=== PATIENT | male | born 1980 | race African-American/Black ===

== ENCOUNTER 2018-01-04 10:06 | Emergency (ER) | payer MEDICAID, OTHER ==
[~2018-01-04] VITALS: Ht 182.9 cm; Wt 109.0 kg
[2018-01-04 10:21] VITALS: BP 134/86
== END 2018-01-04 13:22 | disposition home or self-care (01) ==
LOC: ER 10:42
DX: J40 Bronchitis, not specified as acute or chronic (principal); F17.210 Nicotine dependence, cigarettes, uncomplicated
CPT/HCPCS: 71045; 87804; 99285

== ENCOUNTER 2018-09-13 11:20 | Emergency (ER) | payer MEDICAID ==
[~2018-09-13] VITALS: Ht 180.3 cm; Wt 121.5 kg
[2018-09-13] MEDS ORDERED: PIPERACILLIN/TAZ 3.375G PREMIX 50 ML IV ONE (13:45)
[2018-09-13] MEDS ORDERED: VANCOMYCIN 1 G PREMIX 200 ML IV ONE (13:45)
[2018-09-13] MEDS ORDERED: SODIUM CHLORIDE 0.9% 1000ML BAG (SEPSIS BOLUS) IV ONE (13:45)
[2018-09-13 14:21] LABS: CHLORIDE 104 mEq/L (98-107)
[2018-09-13 14:23] LABS: BASOPHILS % 0.3 % (0.0-2.0); EOSINOPHILS % 1.1 % (0.0-5.0); HEMOGLOBIN. 16.3 g/dL (14.0-18.0); LYMPHOCYTES % 18.1 % (20.0-50.0); MEAN CORPUSCULAR HEMOGLOBIN 30.2 pg (28.0-32.0); MEAN CORPUSCULAR VOLUME 88.9 fL (80.0-94.0); MEAN PLATELET VOLUME 9.6 fl (7.4-10.4); MONOCYTES % 6.2 % (2.0-8.0); NEUTROPHILS % 74.3 % (40.0-76.0); PLATELET 171 x1000/uL (130-400); RED CELL DISTRIBUTION WIDTH 13.3 % (11.6-14.6)
[2018-09-13 14:32] LABS: PROTHROMBIN TIME 10.2 sec (9.1-11.1)
[2018-09-13] MEDS ORDERED: NEOMYCIN-POLYMYXIN B-HYDROCORTISONE 1% OTIC SOLN 10ML RIGHT EAR ONE (14:45)
[2018-09-13] MEDS ORDERED: AMOXICILLIN/POTASSIUM CLAVULANATE 875/125MG TAB PO ONE (14:45)
[2018-09-13 15:53] VITALS: BP 115/99
[2018-09-13 16:08] LABS: CLARITY URINE CLEAR (CLEAR); COLOR URINE YELLOW (YELLOW); PH URINE 5.5 (4.5-8.0)
[2018-09-13 16:09] LABS: KETONES URINE NEGATIVE (NEGATIVE); NITRITE URINE NEGATIVE (NEGATIVE); OCCULT BLOOD URINE NEGATIVE (NEGATIVE); PROTEIN URINE NEGATIVE (NEGATIVE)
[2018-09-13 16:10] LABS: LEUKOCYTE ESTERASE URINE NEGATIVE (NEGATIVE); UROBILINOGEN URINE 0.2 E.U./dL (0.2-1.0)
== END 2018-09-13 15:54 | disposition home or self-care (01) ==
LOC: ER 12:51
DX: H60.91 Unspecified otitis externa, right ear (principal); F17.200 Nicotine dependence, unspecified, uncomplicated; F12.10 Cannabis abuse, uncomplicated
CPT/HCPCS: 36415; 80053; 81003; 83605; 84145; 84484; 85025; 85610; 87040; 87086; 93005; 99285; J7030

== ENCOUNTER 2021-05-12 18:14 | Emergency (ER) | payer MEDICAID ==
[~2021-05-12] VITALS: Ht 180.3 cm; Wt 90.0 kg
[2021-05-12] MEDS ORDERED: PERMETHRIN 5% CREAM 60GM TOP ONE (19:45)
[2021-05-12] MEDS ORDERED: ERYTHROMYCIN BASE 0.5% OPHTH OINT 3.5GM LEFTEYE ONE (19:45)
[2021-05-12] MEDS ORDERED: TOBR5DRO47 EACHEYE (21:23)
[2021-05-12] MEDS ORDERED: PERM60CR4 TP (21:23)
[2021-05-12] MEDS ORDERED: ERYTHROMYCIN BASE 0.5% OPHTH OINT UD LEFTEYE ONE (21:45)
[2021-05-12 21:49] VITALS: BP 128/94
== END 2021-05-12 21:51 | disposition home or self-care (01) ==
LOC: ER 18:33
DX: B86 Scabies (principal); H10.89 Other conjunctivitis; I10 Essential (primary) hypertension; E66.9 Obesity, unspecified; Z68.27 Body mass index [BMI] 27.0-27.9, adult; F12.90 Cannabis use, unspecified, uncomplicated
CPT/HCPCS: 99282; 99283

== ENCOUNTER 2021-10-04 02:29 | Emergency (ER) | payer MEDICAID, OTHER ==
[~2021-10-04 02:29] MED LIST: PERM60CR4 TP; TOBR5DRO47 EACHEYE
== END 2021-10-04 03:32 | disposition left against medical advice (07) ==
LOC: ER 02:29
DX: Z53.21 Procedure and treatment not carried out due to patient leaving prior to being seen by health care provider (principal)

== ENCOUNTER 2021-10-08 04:54 | Emergency (ER) | payer OTHER ==
[~2021-10-08] VITALS: Ht 180.3 cm; Wt 118.0 kg
[2021-10-08 06:47] LABS: BASOPHILS % 0.4 % (0.0-2.0); EOSINOPHILS % 2.4 % (0.0-5.0); HEMATOCRIT. 45.6 % (42.0-52.0); HEMOGLOBIN. 15.2 g/dL (14.0-18.0); LYMPHOCYTES % 31.3 % (20.0-50.0); MEAN CORPUSCULAR HEMOGLOBIN 29.5 pg (28.0-32.0); MEAN CORPUSCULAR VOLUME 88.4 fL (80.0-94.0); MEAN PLATELET VOLUME 8.6 fl (7.4-10.4); MONOCYTES % 6.6 % (2.0-8.0); NEUTROPHILS % 59.3 % (40.0-76.0); PLATELET 210 x1000/uL (130-400); RED BLOOD CELL COUNT 5.16 mill/uL (4.7-6.1); RED CELL DISTRIBUTION WIDTH 13.3 % (11.6-14.6)
[2021-10-08 06:52] LABS: CHLORIDE 105 mEq/L (98-107)
[2021-10-08 06:56] LABS: ETHANOL BLOOD < 10 mg/dL
[2021-10-08 07:06] LABS: BG BASE EXCESS -0.3 mmol/L (-2.0-2.0); BG CARBOXYHEMOGLOBIN 2.9 % (0.5-1.5); BG DEOXYHEMOGLOBIN 6.1 % (0.0-5.0); BG FRACTION INSPIRED OXYGEN 21; BG HCO3 ACT 25.8 mmol/L (22.0-26.0); BG METHEMOGLOBIN 0.1 % (0.0-1.5); BG OXYGEN SATURATION 93.7 % (92.0-98.5); BG OXYHEMOGLOBIN 90.9 % (94.0-97.0); BG PCO2 47.3 mmHg (35.0-45.0); BG PH 7.354 (7.350-7.450); BG PO2 71.6 mmHg (75.0-100.0); BG SAMPLE SITE RIGHT RADIAL; BG TOTAL HEMOGLOBIN 15.9 g/dL (12.0-18.0); BG VENT MODE ROOM AIR
[2021-10-08 08:00] VITALS: BP 154/98
== END 2021-10-08 08:34 | disposition home or self-care (01) ==
LOC: ER 04:54
DX: R53.1 Weakness (principal); M79.642 Pain in left hand; M79.641 Pain in right hand; R40.0 Somnolence
CPT/HCPCS: 36415; 36600; 71045; 80053; 80320; 82140; 82375; 82805; 85025; 99285; G0480

== ENCOUNTER 2022-12-04 20:06 | Emergency (ER) | payer MEDICAID, OTHER | END 2022-12-04 21:05 | disposition left against medical advice (07) | LOC: ER 20:06 | DX: Z53.21 Procedure and treatment not carried out due to patient leaving prior to being seen by health care provider (principal) ==

== ENCOUNTER 2023-01-13 01:18 | Emergency (ER) | payer MEDICAID, OTHER ==
[~2023-01-13] VITALS: Ht 180.3 cm; Wt 105.0 kg
[2023-01-13 01:25] VITALS: BP 135/89
[2023-01-13] MEDS ORDERED: ACETAMINOPHEN 500MG TABLET PO ONE (01:45)
[2023-01-13 03:23] LABS: BASOPHILS % 0.5 % (0.0-2.0); EOSINOPHILS % 2.7 % (0.0-5.0); HEMOGLOBIN. 14.4 g/dL (14.0-18.0); LYMPHOCYTES % 29.1 % (20.0-50.0); MEAN CORPUSCULAR HEMOGLOBIN 29.4 pg (28.0-32.0); MEAN CORPUSCULAR VOLUME 87.8 fL (80.0-94.0); MEAN PLATELET VOLUME 8.5 fl (7.4-10.4); MONOCYTES % 6.1 % (2.0-8.0); NEUTROPHILS % 61.6 % (40.0-76.0); PLATELET 191 x1000/uL (130-400); RED CELL DISTRIBUTION WIDTH 13.6 % (11.6-14.6)
[2023-01-13 03:34] LABS: CHLORIDE 104 mEq/L (98-107)
== END 2023-01-13 05:19 | disposition home or self-care (01) ==
LOC: ER 01:18
DX: R55 Syncope and collapse (principal); M79.18 Myalgia, other site; R00.0 Tachycardia, unspecified; I10 Essential (primary) hypertension; G40.909 Epilepsy, unspecified, not intractable, without status epilepticus; Z59.00 Homelessness unspecified
CPT/HCPCS: 36415; 71045; 80048; 84484; 85025; 93005; 99285

== ENCOUNTER 2023-01-20 04:02 | Emergency (ER) | payer MEDICAID ==
[2023-01-20 05:44] LABS: BASOPHILS % 0.5 % (0.0-2.0); HEMATOCRIT. 40.4 % (42.0-52.0); HEMOGLOBIN. 13.4 g/dL (14.0-18.0); LYMPHOCYTES % 23.6 % (20.0-50.0); MEAN CORPUSCULAR HEMOGLOBIN 29.2 pg (28.0-32.0); MEAN CORPUSCULAR VOLUME 87.7 fL (80.0-94.0); MEAN PLATELET VOLUME 8.6 fl (7.4-10.4); MONOCYTES % 6.7 % (2.0-8.0); NEUTROPHILS % 68.2 % (40.0-76.0); PLATELET 208 x1000/uL (130-400); RED BLOOD CELL COUNT 4.61 mill/uL (4.7-6.1); RED CELL DISTRIBUTION WIDTH 13.8 % (11.6-14.6)
[2023-01-20 06:01] LABS: CHLORIDE 106 mEq/L (98-107)
[2023-01-20 06:15] LABS: ETHANOL BLOOD < 10 mg/dL
[2023-01-20] MEDS ORDERED: PERM60CR4 TP (09:43)
[2023-01-20 09:56] VITALS: BP 159/104
== END 2023-01-20 09:58 | disposition home or self-care (01) ==
LOC: ER 04:02
DX: M79.10 Myalgia, unspecified site (principal); F12.10 Cannabis abuse, uncomplicated; Z79.899 Other long term (current) drug therapy; T43.655A Adverse effect of methamphetamines, initial encounter; Y92.89 Other specified places as the place of occurrence of the external cause
CPT/HCPCS: 36415; 80053; 80307; 80320; 80329; 85025; 99283; Z7610; G0480

== ENCOUNTER 2023-02-06 09:13 | Emergency (ER) | payer MEDICAID ==
[~2023-02-06] VITALS: Ht 180.3 cm; Wt 101.0 kg
[2023-02-06] MEDS ORDERED: PERM60CR4 TP (09:56)
[2023-02-06] MEDS ORDERED: DIPH25CA83 PO (09:56)
[2023-02-06 11:19] VITALS: BP 126/75
== END 2023-02-06 11:20 | disposition home or self-care (01) ==
LOC: ER 10:26
DX: R20.2 Paresthesia of skin (principal); F15.10 Other stimulant abuse, uncomplicated; Z59.00 Homelessness unspecified; Z71.51 Drug abuse counseling and surveillance of drug abuser
CPT/HCPCS: 99281

== ENCOUNTER 2023-04-08 13:42 | Emergency (ER) | payer MEDICAID, OTHER ==
[~2023-04-08] VITALS: Ht 180.3 cm; Wt 90.0 kg
[~2023-04-08 13:42] MED LIST changes: +DIPH25CA83 PO
[2023-04-08] MEDS ORDERED: CHLORDIAZEPOXIDE 25MG CAPSULE PO ONE (14:15)
[2023-04-08] MEDS ORDERED: CEFTRIAXONE SODIUM 1 G/VIAL IM ONE (14:15)
[2023-04-08] MEDS ORDERED: DOXY100C5 MT (14:18)
[2023-04-08 14:48] VITALS: BP 152/91
== END 2023-04-08 14:54 | disposition home or self-care (01) ==
LOC: ER 13:42
DX: S40.812A Abrasion of left upper arm, initial encounter (principal); V26.49XA Other motorcycle driver injured in collision with other nonmotor vehicle in traffic accident, initial encounter; Y93.89 Activity, other specified; Y92.89 Other specified places as the place of occurrence of the external cause; Y99.8 Other external cause status; I10 Essential (primary) hypertension; F15.10 Other stimulant abuse, uncomplicated
CPT/HCPCS: 96372; 99283; J0696